=== PATIENT | male | born 1970 | race Hispanic/Latino ===

== ENCOUNTER 2016-10-27 08:29 | Day surgery (SDC) | payer MEDICAID ==
[2016-10-22 08:45] VITALS: BMI 26.6
[2016-10-27] MEDS ORDERED: Bupivacaine 0.5% Inj(30mL) ONE (08:59)
[2016-10-27] MEDS ORDERED: Midazolam 2 MG/2 ML VIAL ONE (08:59)
[2016-10-27] MEDS ORDERED: Propofol 10 mg/ml Inj (20 ML) ONE (08:59)
[2016-10-27] MEDS ORDERED: Lactated Ringer's 1,000 ML IV SCH (10:15)
[2016-10-27] MEDS ORDERED: HYDROmorphone 0.5 mg/0.5 ml ISec IVP PRN (10:15)
--- NOTE | 2016-10-27 10:28 | PCM.SURG1 ---
Surgeon's Initial Post Op Note - Surgeon's Notes Surgeon: Anant Forming Tube Selector: PGY3 Type of Anesthesia: General LMA Pre-Operative Diagnosis: Incarcerated umbilical hernia Operative Findings: Incarcerated umbilical hernia Post-Operative Diagnosis: Incarcerated umbilical hernia Operation Performed: Incarcerated umbilical hernia repair with mesh Specimen/Specimens Removed: umbilical hernia sac and contents Estimated Blood Loss: EBL {In ML}: 5 Blood Products Given: N/A Drains Used: No Drains Post-Op Condition: Good Date of Surgery/Procedure: 10/27/16 Time of Surgery/Procedure: 09:10
[2016-10-27] MEDS ORDERED: HYDROmorphone 0.5 mg/0.5 ml ISec ONE ×2 (10:45→11:01)
[2016-10-27] MEDS ORDERED: HYDROmorphone 0.5 mg/0.5 ml ISec IVP ONE (11:02)
[2016-10-27 11:43] VITALS: RESP 18
[2016-10-27 13:53] VITALS: BP 150/84; PULSE 88; TEMP 98; O2SAT 96
--- NOTE | 2016-11-12 14:07 | PCM.OP ---
Operative Report - Operative Report Date of Surgery/Procedure: 10/27/16 Time of Surgery/Procedure: 00:00 Surgeon: Ellis Ny MD Emissions Technician: Leonard Brown Anesthesia/Sedation: LMA-Marcaine 14cc Pre-Operative Diagnosis: Incarcerated Umbilical Hernia Post-Operative Diagnosis: Incarcerated Umbilical Hernia Indication for Surgery: 46 [place] for umbilical hernia that 's gaining more symptomatic causing pain and interference with work environment. Advised of risk and benefits and elects along with spouse for same day surgical correction. Operative Findings: hernia incarcerated Procedure/Operation Description: Umbilical herniorrhaphy with mesh, Omentectomy. Induced with anesthesia through intravarengal mask. Abdomen electrically put and prepped with chlorhexidine preparation aseptically draped. Sequential compression devices placed on lower extremities for venous thromboembolism prophylaxis. . Circumumbilical incision made caudad & sharp dissection carried to subcutaneous tissues down to anterior fascia through subcutaneous space. Homeostasis is contained with Caudery. The umbilical hernia is still incarcerated circumferentially freed with blunt dissection. Dissected free from umbilical skin hernia sac excised at level of facial at caudery scalpel. Tense adhesions encountered on hernia sac and peritoneal surface, carefully dissected with coagulating current for separation and hemostasis. Inability to return the omentum back into the peritoneal cavity elected transect omentum with a Madelin clamp and 2 0 chromo cut ligature. And the hernia sac with omentum submitted in one container for permanent section analysis. . Anterior abdominal wall inspected and found free and 3.5 inch mesh is placed into peritoneal cavity (ventralex) pulled up anteriorly and anterior fascia closed with figure of 8, 2-0 Prolene sutures. The wings on the ventral mesh secured on the suture line and then transected. Normal Saline solution until return is completely clear. And homeostasis is confirmed. Subcutaneous approximation with 3.0 poly absorbed sutures employed in the skin closed with biosyn 4.0 subcuticular closure and dermabond adhesive. Pt is awaken dry dressing placed on area. Estimated Blood Loss: 20cc Blood Replaced: 0 Sponge/Instrument Count: y Drains: 0 Complications: None Specimen: hernia=omentum Discharge & Condition: Pt is then transported to recovery room in satisfactory condition
== END 2016-10-27 14:10 | disposition home or self-care (01) ==
LOC: SDS 08:29
PROVIDERS: ATTEND Surgery
DX: K42.0 Umbilical hernia with obstruction, without gangrene (principal); K21.9 Gastro-esophageal reflux disease without esophagitis; E78.5 Hyperlipidemia, unspecified
CPT/HCPCS: 49587; 88302; C1781; J0690; J1170; J2001; J2175; J2250; J2405; J2704; J2765; J3010; J7120 ×2

== ENCOUNTER 2017-09-10 15:37 | Inpatient (IN) | payer MEDICAID ==
[2017-09-10 15:46] VITALS: BMI 25.8
[2017-09-10] MEDS ORDERED: Sodium Chloride 0.9% 1,000 ML IV STA (16:16)
--- NOTE | 2017-09-10 16:34 | ED PDOC ---
Arrival/HPI - General Chief Complaint: Cough, Cold, Congestion Time Seen by Provider: 09/10/17 15:53 Historian: Patient - History of Present Illness Narrative History of Present Illness (Text): 09/10/17 16:25 47yr old male presents today with 3 day history of URI symptoms. pt was seen 3 days ago at [facility] [place] [facility] ER was diagnosed with sinusitis was discharged home on nasal spray and pain medication without antibiotics. Patient states over the past 2 days his symptoms are worsening. Patient states he has a bad taste in his mouth he's been feeling dizzy. Patient states he's had continued cough. Patient denies abdominal pain. States he's been feeling nauseous. Patient is also complaining of back pain which he describes as an achy pain. Patient denies numbness weakness or tingling in the extremities. Complaining of fevers of 100.6 at home. Patient states he feels like he is dehydrated. No other complaints Time/Duration: Other (3 days) Past Medical History - Provider Review Nursing Documentation Reviewed: Yes - Travel History Have you recently traveled outside [place] w/in the past 3 mons?: No - Past History Past History: No Previous - Infectious Disease Hx of Infectious Diseases: None - Tetanus Immunization Tetanus Immunization: Unknown - Cardiac Hx Pacemaker: No - Neurological Hx Paralysis: No - Hematological/Oncological Hx Blood Transfusions: No - Musculoskeletal/Rheumatological Hx Musculoskeletal Disorders: Yes (CHRONIC PAIN) Other/Comment: sciatica - Gastrointestinal Hx Gastritis: Yes Hx Gastroesophageal Reflux: Yes (stomach issue) - Psychiatric Hx Emotional Abuse: No Hx Physical Abuse: No Hx Substance Use: Yes (MEDICINAL MARIJUANA(APPROX 1/2 JOINT/DAY)) - Surgical History Hx Inguinal Hernia Repair: Yes (x2) - Anesthesia Hx Anesthesia Reactions: No Hx Malignant Hyperthermia: No - Suicidal Assessment Feels Threatened In Home Enviroment: No Family/Social History - Physician Review Nursing Documentation Reviewed: Yes Family/Social History: Unknown Family HX Smoking Status: Light Smoker < 10 Cigarettes Daily Hx Alcohol Use: Yes (BEER) Frequency of alcohol use: Socially Hx Substance Use: Yes (MEDICINAL MARIJUANA(APPROX 1/2 JOINT/DAY)) Hx Substance Use Treatment: No Allergies/Home Meds Allergies/Adverse Reactions: Allergies No Known Allergies Allergy (Verified 01/06/14 20:51) Home Medications: Home Meds Medication Instructions Recorded Confirmed Omeprazole 20 mg PO DAILY 10/22/16 09/10/17 Sucralfate [Carafate Tab] 1 tab PO DAILY PRN 09/10/17 09/10/17 Review of Systems - Review of Systems Constitutional: Fatigue, Fevers ENT: Sore Throat, Sinus Congestion Respiratory: Cough. absent: SOB Cardiovascular: absent: Chest Pain, Palpitations Gastrointestinal: Nausea. absent: Abdominal Pain, Constipation, Diarrhea, Vomiting Genitourinary Male: absent: Dysuria, Frequency, Hematuria Musculoskeletal: Back Pain. absent: Arthralgias, Neck Pain Skin: absent: Rash, Pruritis Neurological: Headache, Dizziness Psychiatric: absent: Anxiety, Depression, Suicidal Ideation Physical Exam Vital Signs Reviewed: Yes Vital Signs Temp Pulse Resp BP Pulse Ox 09/10/17 15:46 97.8 F 98 H 18 132/94 H 98 Temperature: Afebrile Blood Pressure: Hypertensive Pulse: Regular Respiratory Rate: Normal Appearance: Positive for: Well-Appearing, Non-Toxic, Comfortable Pain Distress: None Mental Status: Positive for: Alert and Oriented X 3 - Systems Exam Head: Present: Atraumatic. No: Tenderness Pupils: Present: PERRL Extroacular Muscles: Present: EOMI Conjunctiva: Present: Normal Ears: Present: Normal, NORMAL TM, Normal Canal. No: Erythema, TM Bulging Mouth: Present: Moist Mucous Membranes, Normal Lips, Normal Tounge, Normal Teeth. No: Drooling, Trismus Pharnyx: Present: Normal. No: ERYTHEMA, EXUDATE, TONSILS ENLARGED, Peritonsilar Swelling, Uvular Deviation, Muffled/Hoarse Voice Nose (External): Present: Atraumatic Nose (Internal): Present: Normal Inspection Neck: Present: Normal Range of Motion, Trachea Midline. No: Lymphadenopathy Respiratory/Chest: Present: Clear to Auscultation, Good Air Exchange. No: Respiratory Distress, Accessory Muscle Use Cardiovascular: Present: Regular Rate and Rhythm, Normal S1, S2. No: Murmurs Abdomen: No: Tenderness, Distention, Peritoneal Signs, Rebound, Guarding Back: Present: Normal Inspection. No: CVA Tenderness, Midline Tenderness, Paraspinal Tenderness Upper Extremity: Present: Normal ROM Lower Extremity: Present: Normal ROM Neurological: Present: GCS=15, Speech Normal Skin: Present: Warm, Dry, Normal Color. No: Rashes Psychiatric: Present: Alert, Oriented x 3 Medical Decision Making ED Course and Treatment: 09/10/17 16:37 47yr old male with URI symptoms, sinus congestion, cough, fever, dizziness, weakness, fatigue. cbc; wnl cmp: elevated LFTS lipase; wnl LDH elevated ekg; sinus rhythm at 91 bpm left axis deviation. no st elevations, normal intervals. cxr: wnl rapid flu negative UA: + bili, + blood pt given toradol IV and NS 1L IV bolus. pt reassessment; pt feeling better after medications; vitals stable. case discussed with dr. abebe; accepts admission impression; elevated LFTS, admit to med/surg - Lab Interpretations Lab Results: 09/10/17 16:30 09/10/17 16:30 Lab Results 09/10/17 17:22: Urine Color Yellow, Urine Appearance Clear, Urine pH 6.0, Ur Specific Preston 1.025, Urine Protein Trace H, Urine Glucose (UA) Negative, Urine Ketones Negative, Urine Blood Trace-intact H, Urine Nitrate Negative, Urine Bilirubin Small H, Urine Urobilinogen 0.2, Ur Leukocyte Esterase Negative , Urine RBC 1 - 3, Urine WBC 0 - 2, Ur Epithelial Cells None 09/10/17 16:53: Influenza Typ A,B (EIA) Negative for flu a/b 09/10/17 16:30: Direct Bilirubin 1.4 H, Lactate Dehydrogenase 1451 H, Lipase 57 09/10/17 16:30: WBC 10.1 D, RBC 5.13, Hgb 16.1, Hct 45.1, MCV 87.9, MCH 31.4, MCHC 35.7, RDW 12.7, Plt Count 223, MPV 10.5, Gran % 76.6 H, Lymph % (Auto) 9.8 L, Craig % (Auto) 10.3 H, Eos % (Auto) 3.1, Baso % (Auto) 0.2, Gran # 7.71 H, Lymph # (Auto) 1.0 L, Craig # (Auto) 1.0 H, Eos # (Auto) 0.3, Baso # (Auto) 0.02 09/10/17 16:30: Sodium 139, Potassium 4.0, Chloride 99, Carbon Dioxide 29, Anion Gap 16, BUN 14, Creatinine 1.0, Est GFR ( Amer) > 60, Est GFR (Non- Af Amer) > 60, Random Glucose 100, Calcium 9.8, Total Bilirubin 2.7 H, AST 667 H , ALT 762 H, Alkaline Phosphatase 245 H, Total Protein 8.0, Albumin 4.6, Globulin 3.4, Albumin/Globulin Ratio 1.3 - RAD Interpretation Radiology Orders: 09/10/17 16:16 CHEST TWO VIEWS (PA/LAT) [RAD] Stat - Medication Orders Current Medication Orders: Discontinued Medications Sodium Chloride (Sodium Chloride 0.9%) 1,000 mls @ 999 mls/hr IV .Q1H1M STA Stop: 09/10/17 17:16 Last Admin: 09/10/17 16:32 Dose: 999 mls/hr eMAR Start Stop Document 09/10/17 16:32 LA (Rec: 09/10/17 16:33 LA [id number]) Intravenous Solution Start Date 09/10/17 Start Time 16:32 End Date 09/10/17 End time 17:33 Total Infusion Time 61 Ketorolac Tromethamine (Toradol) 30 mg IVP STAT STA Stop: 09/10/17 16:17 Last Admin: 09/10/17 16:35 Dose: 30 mg MAR Pain Assessment Document 09/10/17 16:35 LA (Rec: 09/10/17 16:36 LA [id number]) Pain Reassessment Is this a pain reassessment? Yes Sleep Is patient sleeping during reassessment? No Presence of Pain Presence of Pain Yes Pain Scale Used Pain Scale Used Numeric Location Pain Location Body Site Generalized Description Intensity of Pain at present 6 IVP Administration Document 09/10/17 16:35 LA (Rec: 09/10/17 16:36 LA [id number]) Charges for Administration # of IVP Administrations 1 Disposition/Present on Arrival - Present on Arrival Any Indicators Present on Arrival: No History of DVT/PE: No History of Uncontrolled Diabetes: No Urinary Catheter: No History of Decub. Ulcer: No History Surgical Site Infection Following: None - Disposition Have Diagnosis and Disposition been Completed?: Yes Diagnosis: Elevated LFTs, Fatigue Disposition: HOSPITALIZED Disposition Time: 17:47 Patient Plan: Observation Patient Problems: Current Active Problems Problem Status Onset Elevated LFTs Acute Fatigue Acute Condition: FAIR Referrals: Servando Maldonado MD [Primary Care Provider] - Follow up with primary Forms: [facility] ([place])
[2017-09-10 16:47] LABS: BASO # 0.02 K/mm3 (0.0-2.0); BASO % 0.2 % (0.0-3.0); EOS # 0.3 (0.0-0.7); EOS % 3.1 % (1.5-5.0); GRAN # 7.71 (1.4-6.5); GRAN % 76.6 % (50.0-68.0); HEMOGLOBIN 16.1 g/dL (14.0-18.0); LYMPH % 9.8 % (22.0-35.0); MEAN CELL VOLUME 87.9 fl (80.0-105.0); MEAN CORPUSCULAR HEMOGLOBIN 31.4 pg (25.0-35.0); MEAN CORPUSCULAR HGB CONC 35.7 g/dl (31.0-37.0); MEAN PLATELET VOLUME 10.5 fl (7.0-11.0); MONO % 10.3 % (1.0-6.0); RBC 5.13 10^6/uL (3.5-6.1); RED CELL DISTRIBUTION WIDTH 12.7 % (11.5-14.5); WHITE BLOOD COUNT 10.1 10^3/ul (4.5-11.0)
[2017-09-10 16:56] LABS: ALB/GLOB RATIO 1.3 (1.1-1.8); ALBUMIN 4.6 g/dL (3.0-4.8); ALT/SGPT 762 U/L (7-56); AST/SGOT 667 U/L (17-59); BLOOD UREA NITROGEN 14 mg/dL (7-21); CALCIUM 9.8 mg/dL (8.4-10.5); GFR AFRICAN-AMERICAN > 60; GFR NON-AFRICAN AMERICAN > 60
[2017-09-10 17:32] LABS: BILIRUBIN,DIRECT 1.4 mg/dL (0.0-0.4)
[2017-09-10 17:41] LABS: URINE BILIRUBIN SMALL (NEGATIVE); URINE BLOOD TRACE-INTACT (NEGATIVE); URINE GLUCOSE (UA) NEGATIVE (NEGATIVE); URINE LEUKOCYTE ESTERASE NEGATIVE Leu/uL (NEGATIVE); URINE PROTEIN TRACE mg/dL (<30 mg/dL); URINE UROBILINOGEN 0.2 E.U./dL (<1 E.U./dL)
[2017-09-10 17:43] LABS: URINE APPEARANCE CLEAR (CLEAR); URINE COLOR YELLOW (YELLOW)
[2017-09-10 17:57] LABS: URINE WBC 0 - 2 /hpf (0-6)
[2017-09-10 18:51] VITALS: O2SAT 100
[2017-09-10 19:14] LABS: ACETAMINOPHEN < 10.0 ug/ml (10.0-20.0); SALICYLATE < 1 mg/dL (2.0-20.0)
[2017-09-10] MEDS ORDERED: Multivitamin (MVI) 10 ML, Thiamine 100 MG, Folic Acid 1 MG in Dextrose 5% In Water 1,00... IV ONE (20:02)
--- NOTE | 2017-09-10 20:11 | CP.PCM.HP ---
<Neeraj Teixeira - Last Filed: 09/10/17 22:25> History of Present Illness - History of Present Illness History of Present Illness: PGY1 Medicine H+P Note for Dr. Thorne Patient is a 47 year old male with a past medical history of gastritis and chronic low back pain presenting to the emergency room with a 3 day history of URI symptoms. He had a fever of 100.6 while at home and complains of overall weakness. He was seen 3 days ago at the [facility] ER and was discharged with a diagnosis of sinusitis. He was given a nasal spray but no antibiotics. Over the past two days, his symptoms have been getting worse. He has had decreased oral intake and has not has anything to eat or drink in two days. He denies abdominal pain but was extremely nauseous upon presenting to the emergency room. He was given some fluids and zofran. Patient states all of his symptoms were resolved upon time patient was to be admitted. He had no complaints at this time. Denies chills, diarrhea, constipation, chest pain, shortness of breath, palpitations, abdominal pain, headaches, dizziness or lightheadedness. PMH: gastritis and low back pain PSH: two inguinal hernia repairs, one umbilical hernia repair Family: unknown Social: denies tobacco, approximately 24 beers a week (3-4 beers daily), denies illicit drug use. Allergies: NKDA Meds: Patient uses medical marijuana for chronic pain. Present on Admission - Present on Admission Any Indicators Present on Admission: No Review of Systems - Review of Systems All systems: reviewed and no additional remarkable complaints except (as per HPI ) - Constitutional Constitutional: As Per HPI, Fatigue, Fever, Weakness (generalized). absent: Chills - EENT Eyes: As Per HPI Ears: absent: Dizziness Nose/Mouth/Throat: As Per HPI. absent: Nasal Congestion, Nasal Discharge - Cardiovascular Cardiovascular: As Per HPI - Respiratory Respiratory: As Per HPI - Gastrointestinal Gastrointestinal: As Per HPI - Musculoskeletal Musculoskeletal: As Per HPI - Integumentary Integumentary: As Per HPI - Neurological Neurological: As Per HPI - Endocrine Endocrine: As Per HPI - Hematologic/Lymphatic Hematologic: As Per HPI Past Patient History - Infectious Disease Hx of Infectious Diseases: None - Tetanus Immunizations Tetanus Immunization: Unknown - Past Social History Smoking Status: Light Smoker < 10 Cigarettes Daily - CARDIAC Hx Pacemaker: No - NEUROLOGICAL Hx Paralysis: No - HEMATOLOGICAL/ONCOLOGICAL Hx Blood Transfusions: No - MUSCULOSKELETAL/RHEUMATOLOGICAL Hx Musculoskeletal Disorders: Yes (CHRONIC PAIN) Other/Comment: sciatica - GASTROINTESTINAL Hx Gastritis: Yes Hx Gastroesophageal Reflux: Yes (stomach issue) - PSYCHIATRIC Hx Emotional Abuse: No Hx Physical Abuse: No Hx Substance Use: Yes (MEDICINAL MARIJUANA(APPROX 1/2 JOINT/DAY)) - SURGICAL HISTORY Hx Surgeries: Yes Hx Herniorrhaphy: Yes - ANESTHESIA Hx Anesthesia Reactions: No Hx Malignant Hyperthermia: No Meds Allergies/Adverse Reactions: Allergies Allergy/AdvReac Type Severity Reaction Status Date / Time No Known Allergies Allergy Verified 01/06/14 20:51 Physical Exam - Constitutional Appears: Well - Head Exam Head Exam: ATRAUMATIC, NORMAL INSPECTION, NORMOCEPHALIC - Eye Exam Eye Exam: EOMI, Normal appearance - ENT Exam ENT Exam: Mucous Membranes Moist, Normal Exam - Neck Exam Neck exam: Positive for: Normal Inspection - Respiratory Exam Respiratory Exam: Clear to Auscultation Bilateral, NORMAL BREATHING PATTERN. absent: Accessory Muscle Use, Rales, Rhonchi, Wheezes, Respiratory Distress - Cardiovascular Exam Cardiovascular Exam: REGULAR RHYTHM, +S1, +S2 - GI/Abdominal Exam GI & Abdominal Exam: Normal Bowel Sounds, Soft. absent: Tenderness - Rectal Exam Rectal Exam: NORMAL INSPECTION - Extremities Exam Extremities exam: Positive for: normal inspection, pedal pulses present. Negative for: calf tenderness - Back Exam Back exam: NORMAL INSPECTION. absent: CVA tenderness (L), CVA tenderness (R) - Neurological Exam Neurological exam: Alert, CN II-XII Intact, Normal Gait, Oriented x3 - Psychiatric Exam Psychiatric exam: Normal Affect, Normal Mood - Skin Skin Exam: Dry, Intact, Normal Color, Warm Results - Vital Signs Recent Vital Signs: Last Vital Signs Temp 97 F L 09/10/17 19:12 Pulse 90 09/10/17 19:12 Resp 18 09/10/17 19:12 BP 140/90 09/10/17 19:12 Pulse Ox 100 09/10/17 19:12 - Labs Result Diagrams: 09/10/17 16:30 09/10/17 16:30 Assessment & Plan - Assessment and Plan (Free Text) Assessment: Patient is a 47 year old male with a past medical history of gastritis and chronic low back pain presenting with generalized weakness and transaminitis. Plan: Transaminitis GI consulted, Dr. Woods - help appreciated Upon admission: - AST 667 - ALT 762 - Alk Phos 245 - LDH 1451 Salicylates neg Acetaminophen neg Alcohol <10 Abd US - f/u Hep panel - negative Hyperbilirubinemia Upon admission: - Total Bilirubin 2.7 - Direct Bilirubin 1.4 Chronic Low Back Pain Toradol 30mg IVP q6h prn Pt smokes medical marijuana at home f/u UDS hx of Gastritis Protonix 40mg PO daily hx of Alcohol Abuse CIWA protocol Ativan 1 mg IVP prn Banana Bag Prophylactic Care Protonix 40mg PO daily DVT ppx not indicated as patient ambulatory Case discussed with Dr. Mati Pickard Lluvia PGY1 <Lazaro Thorne - Last Filed: 09/11/17 06:24> Results - Vital Signs Recent Vital Signs: Last Vital Signs Temp 98.2 F 09/10/17 21:36 Pulse 85 09/10/17 21:36 Resp 20 09/10/17 21:36 BP 136/100 H 09/10/17 21:36 Pulse Ox 100 09/10/17 19:12 - Labs Result Diagrams: 09/10/17 16:30 09/10/17 16:30 Labs: Laboratory Results - last 24 hr 09/11/17 01:30 Urine Opiates Screen Negative Urine Methadone Screen Negative Ur Barbiturates Screen Negative Ur Phencyclidine Scrn Negative Ur Amphetamines Screen Negative U Benzodiazepines Scrn Negative U Oth Cocaine Metabols Negative U Cannabinoids Screen Positive H
[2017-09-10 21:18] LABS: HEPATITIS B SURFACE AG Negative (NEGATIVE)
[2017-09-10 21:23] LABS: HEPATITIS A IGM NEGATIVE (NEGATIVE); HEPATITIS B CORE AB NEGATIVE (NEGATIVE)
--- NOTE | 2017-09-10 21:28 | US ---
EXAM: US Abdomen Complete CLINICAL HISTORY: 47 years old, male; Abnormal findings; Abnormal lab test; Elevated liver enzymes; Additional info: Elevated lfts/bili TECHNIQUE: Real-time ultrasound of the abdomen (complete) with image documentation. COMPARISON: US - RENAL 2016-07-13 13:05 FINDINGS: Liver: Fatty infiltration. Probable 1.6 x 1.4 x 1.1 cm cyst. No intrahepatic ductal dilatation. Gallbladder: No gallstones. No wall thickening. No pericholecystic fluid. No sonographic Mari's sign. Common bile duct: No dilatation. No stones. Pancreas: Unremarkable as visualized. Kidneys: Normal echogenicity. No hydronephrosis. Spleen: No splenomegaly. Aorta: Unremarkable. No aneurysm. Inferior vena cava: Unremarkable. Free fluid: No significant free fluid. IMPRESSION: 1.No acute findings. 2.Non-acute findings are described above.
[2017-09-10 21:35] LABS: HEPATITIS C ANTIBODY NEGATIVE (NEGATIVE)
[2017-09-11 02:34] LABS: BARBITURATES, UR NEGATIVE (NEGATIVE); BENZODIAZEPINES, UR NEGATIVE (NEGATIVE); OPIATES, UR NEGATIVE (NEGATIVE); PHENCYCLIDINE, UR NEGATIVE (NEGATIVE)
[2017-09-11 04:32] VITALS: RESP 20
[2017-09-11] MEDS ORDERED: Pantoprazole 40 mg EC Tab PO SCH (06:00)
[2017-09-11 07:30] LABS: BASO # 0.02 K/mm3 (0.0-2.0); BASO % 0.3 % (0.0-3.0); EOS # 0.4 (0.0-0.7); EOS % 6.3 % (1.5-5.0); GRAN # 4.43 (1.4-6.5); GRAN % 63.3 % (50.0-68.0); HEMOGLOBIN 15.8 g/dL (14.0-18.0); LYMPH % 14.6 % (22.0-35.0); MEAN CELL VOLUME 88.3 fl (80.0-105.0); MEAN CORPUSCULAR HEMOGLOBIN 30.9 pg (25.0-35.0); MEAN PLATELET VOLUME 10.5 fl (7.0-11.0); MONO # 1.1 (0.1-0.6); MONO % 15.5 % (1.0-6.0); RBC 5.11 10^6/uL (3.5-6.1); RED CELL DISTRIBUTION WIDTH 12.8 % (11.5-14.5)
[2017-09-11 07:51] LABS: ALB/GLOB RATIO 1.3 (1.1-1.8); ALBUMIN 4.3 g/dL (3.0-4.8); ALT/SGPT 753 U/L (7-56); AST/SGOT 550 U/L (17-59); BLOOD UREA NITROGEN 13 mg/dL (7-21); CALCIUM 9.4 mg/dL (8.4-10.5); GFR AFRICAN-AMERICAN > 60; GFR NON-AFRICAN AMERICAN > 60
--- NOTE | 2017-09-11 08:26 | CP.PCM.PN ---
<Zach Osborne - Last Filed: 09/11/17 10:43> Subjective - Date & Time of Evaluation Date of Evaluation: 09/11/17 Time of Evaluation: 08:15 - Subjective Subjective: Zach Osborne PGY1 IM Progress Note for Dr. Brasher Patient was seen and examined at bedside. He states that he has seasonal allergies which his initial presentation could be a manifestation of. He states that he is feeling better overall, but still has a mild cough. Patient denies ever using IV drugs, but states that in the 80's he used cocaine regularly. He is on a medicinal marijuana program due to an accident where he fell off his tractor. 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 He does have a fatty diet. It was explained to him that his liver enzymes were a bit elevated and that he should consider changing his diet and stopping his alcohol use, both of which he is hoping to accomplish. He states that he takes carafate and omeprazole when he eats spicy things for his gastritis, which is about once a week. He denies chills, fevers, n/v/d, abdominal pain, chest pain, or headaches. Objective - Vital Signs/Intake and Output Vital Signs (last 24 hours): Temp Pulse Resp BP Pulse Ox 98.2 F 85 20 136/100 H 100 09/10/17 21:36 09/10/17 21:36 09/10/17 21:36 09/10/17 21:36 09/10/17 19:12 Intake and Output: 09/11/17 09/11/17 06:59 18:59 Intake Total 1700 Output Total 4 Balance 1696 - Medications Medications: Current Medications Ketorolac Tromethamine (Toradol) 30 mg IVP Q6 PRN PRN Reason: Pain, moderate (4-7) Last Admin: 09/10/17 20:57 Dose: 30 mg Lorazepam (Ativan) 1 mg IVP Q4H PRN; Protocol PRN Reason: Symptoms of alcohol withdrawl Ondansetron HCl (Zofran Inj) 4 mg IVP Q6H PRN PRN Reason: Nausea/Vomiting Pantoprazole Sodium (Protonix Ec Tab) 40 mg PO 0600 ELOISE Last Admin: 09/11/17 05:58 Dose: 40 mg - Labs Labs: 09/11/17 07:00 09/11/17 07:00 - Constitutional Appears: Well, Non-toxic, In Acute Distress - Head Exam Head Exam: ATRAUMATIC, NORMAL INSPECTION - Eye Exam Eye Exam: Normal appearance. absent: Scleral icterus Pupil Exam: PERRL - ENT Exam ENT Exam: Mucous Membranes Moist, Normal Exam - Neck Exam Neck Exam: Normal Inspection - Respiratory Exam Respiratory Exam: Clear to Ausculation Bilateral, NORMAL BREATHING PATTERN. absent: Rales, Rhonchi, Wheezes - Cardiovascular Exam Cardiovascular Exam: RRR, +S1, +S2 - GI/Abdominal Exam GI & Abdominal Exam: Soft, Normal Bowel Sounds. absent: Distended, Tenderness, Organomegaly - Extremities Exam Extremities Exam: Full ROM, Normal Inspection - Back Exam Back Exam: Full ROM, NORMAL INSPECTION. absent: CVA tenderness (L), CVA tenderness (R), muscle spasm, tenderness - Neurological Exam Neurological Exam: Alert, Awake - Psychiatric Exam Psychiatric exam: Normal Mood - Skin Skin Exam: Normal Color, Warm Additional comments: no jaundice noted Assessment and Plan - Assessment and Plan (Free Text) Assessment: 47 year old male with a past medical history of gastritis, sciatica, back pain 2 /2 mechanical fall, and 3 hernia repairs presenting with cough and generalized aches and found to have transaminitis and elevated bilirubin Plan: 1. cough and generalized aches - patient remains afebrile - no leukocytosis or signs of infection noted - CXR did not show pneumonia - lungs are CTA on exam - likely 2/2 seasonal allergies vs sinusitis, will start symptomatic treatment - mucinex and tessalon perles 2. Elevated LFT's and elevated conjugated bilirubinemia - downtrending currenytly - Abd US showed fatty liver, probable 1.6 x 1.4 x 1.1 cm cyst, with no intrahepatic ductal dilation, no CBD dilation, no gallstones or GB wall thickening - hepatitis panel negative - GI consulted, recs appreciated - likely 2/2 ETOH hepatitis vs viral hepatitis - will monitor and f/u GI recs 3. Chronic Low Back Pain, controlled on medicinal marijuana - Toradol 30mg IVP q6h prn, pt states not helping and that he needs his marijuana - UDS + cannabis only - will monitor, asymptomatic on physical exam 4. hx of Gastritis - Protonix 40mg PO daily - will consider starting carafate 5. hx of Alcohol Abuse - CIWY protocol - Ativan 1 mg IVP prn - MV, folic acid and thiamine PO 6. Prophylactic Care - Protonix 40mg PO daily - DVT ppx not indicated as patient ambulatory Patient was seen, examined and discussed with attending, Dr. Sameera Osborne PGY1 <Kaylee Brasher - Last Filed: 09/11/17 12:48> Objective - Vital Signs/Intake and Output Vital Signs (last 24 hours): Temp Pulse Resp BP Pulse Ox 97.5 F L 73 20 132/98 H 100 09/11/17 06:00 09/11/17 06:00 09/11/17 06:00 09/11/17 06:00 09/11/17 06:00 Intake and Output: 09/11/17 09/11/17 06:59 18:59 Intake Total 1700 480 Output Total 4 Balance 1696 480 - Labs Labs: 09/11/17 07:00 09/11/17 07:00 PT 12.7 SECONDS (9.4-12.5) H 09/11/17 08:30 INR 1.10 (0.93-1.08) H 09/11/17 08:30 Attending/Attestation - Attestation I have personally seen and examined this patient.: Yes I have fully participated in the care of the patient.: Yes I have reviewed all pertinent clinical information, including history, physical exam and plan: Yes
--- NOTE | 2017-09-11 08:48 | RAD ---
HISTORY: cough/fever COMPARISON: Chest 10/22/2016 TECHNIQUE: Chest PA and lateral FINDINGS: LUNGS: Poor inspiration with low lung volumes, crowded bronchovascular markings and mild bibasilar atelectasis. . PLEURA: No significant pleural effusion identified. No pneumothorax apparent. CARDIOVASCULAR: Heart size is upper limits of normal/ borderline likely due to poor inspiration as well. OSSEOUS STRUCTURES: Minor multilevel degenerative spondylosis of the thoracic spine VISUALIZED UPPER ABDOMEN: Normal. OTHER FINDINGS: None. IMPRESSION: Poor inspiration with low lung volumes, crowded bronchovascular markings and mild bibasilar atelectasis. .
[2017-09-11 09:23] LABS: INR 1.1 (0.93-1.08); PROTHROMBIN TIME 12.7 SECONDS (9.4-12.5)
--- NOTE | 2017-09-11 09:44 | CARD ---
APPROVED REPORT EKG Measurement Heart [id number] [place] [id number] [id number] <Conclusion> Normal sinus rhythm Left axis deviation PRWP V 1 - 4 No change
--- NOTE | 2017-09-11 10:34 | CP.PCM.DIS ---
<Zach Osborne - Last Filed: 09/11/17 10:40> Provider - Provider Date of Admission: 09/10/17 18:02 Attending physician: Kaylee Brasher MD Primary care physician: Servando Maldonado MD Time Spent in preparation of Discharge (in minutes): 40 Diagnosis - Discharge Diagnosis (1) Alcoholic hepatitis Status: Acute (2) Alcoholic fatty liver Status: Acute (3) Elevated LFTs Status: Acute (4) Elevated bilirubin Status: Acute (5) Back pain due to injury Status: Chronic Hospital Course - Lab Results Lab Results: Most Recent Lab Values WBC 7.0 10^3/ul (4.5-11.0) D 09/11/17 07:00 RBC 5.11 10^6/uL (3.5-6.1) 09/11/17 07:00 Hgb 15.8 g/dL (14.0-18.0) 09/11/17 07:00 Hct 45.1 % (42.0-52.0) 09/11/17 07:00 MCV 88.3 fl (80.0-105.0) 09/11/17 07:00 MCH 30.9 pg (25.0-35.0) 09/11/17 07:00 MCHC 35.0 g/dl (31.0-37.0) 09/11/17 07:00 RDW 12.8 % (11.5-14.5) 09/11/17 07:00 Plt Count 221 10^3/uL (120.0-450.0) 09/11/17 07:00 MPV 10.5 fl (7.0-11.0) 09/11/17 07:00 Gran % 63.3 % (50.0-68.0) 09/11/17 07:00 Lymph % (Auto) 14.6 % (22.0-35.0) L 09/11/17 07:00 [place] % (Auto) 15.5 % (1.0-6.0) H 09/11/17 07:00 Eos % (Auto) 6.3 % (1.5-5.0) H 09/11/17 07:00 Baso % (Auto) 0.3 % (0.0-3.0) 09/11/17 07:00 Gran # 4.43 (1.4-6.5) 09/11/17 07:00 Lymph # (Auto) 1.0 (1.2-3.4) L 09/11/17 07:00 [place] # (Auto) 1.1 (0.1-0.6) H 09/11/17 07:00 Eos # (Auto) 0.4 (0.0-0.7) 09/11/17 07:00 Baso # (Auto) 0.02 K/mm3 (0.0-2.0) 09/11/17 07:00 PT 12.7 SECONDS (9.4-12.5) H 09/11/17 08:30 INR 1.10 (0.93-1.08) H 09/11/17 08:30 Sodium 142 mmol/L (132-148) 09/11/17 07:00 Potassium 4.4 mmol/L (3.6-5.0) 09/11/17 07:00 Chloride 105 mmol/L (98-107) 09/11/17 07:00 Carbon Dioxide 25 mmol/L (21-33) 09/11/17 07:00 Anion Gap 16 (10-20) 09/11/17 07:00 BUN 13 mg/dL (7-21) 09/11/17 07:00 Creatinine 0.9 mg/dl (0.8-1.5) 09/11/17 07:00 Est GFR ( Amer) > 60 09/11/17 07:00 Est GFR (Non-Af Amer) > 60 09/11/17 07:00 Random Glucose 117 mg/dL (70-110) H 09/11/17 07:00 Calcium 9.4 mg/dL (8.4-10.5) 09/11/17 07:00 Phosphorus 3.5 mg/dL (2.5-4.5) 09/11/17 07:00 Magnesium 2.1 mg/dL (1.7-2.2) 09/11/17 07:00 Total Bilirubin 2.6 mg/dL (0.2-1.3) H 09/11/17 07:00 Direct Bilirubin 1.4 mg/dL (0.0-0.4) H 09/10/17 16:30 AST 550 U/L (17-59) H 09/11/17 07:00 ALT 753 U/L (7-56) H 09/11/17 07:00 Alkaline Phosphatase 287 U/L (38-126) H 09/11/17 07:00 Lactate Dehydrogenase 1451 U/L (333-699) H 09/10/17 16:30 Total Protein 7.6 g/dL (5.8-8.3) 09/11/17 07:00 Albumin 4.3 g/dL (3.0-4.8) 09/11/17 07:00 Globulin 3.3 gm/dL 09/11/17 07:00 Albumin/Globulin Ratio 1.3 (1.1-1.8) 09/11/17 07:00 Lipase 57 U/L (23-300) 09/10/17 16:30 Urine Color Yellow (YELLOW) 09/10/17 17:22 Urine Appearance Clear (CLEAR) 09/10/17 17:22 Urine pH 6.0 (4.7-8.0) 09/10/17 17:22 Ur Specific [place] 1.025 (1.005-1.035) 09/10/17 17:22 Urine Protein Trace mg/dL (<30 mg/dL) H 09/10/17 17:22 Urine Glucose (UA) Negative mg/dL (NEGATIVE) 09/10/17 17:22 Urine Ketones Negative mg/dL (NEGATIVE) 09/10/17 17:22 Urine Blood Trace-intact (NEGATIVE) H 09/10/17 17:22 Urine Nitrate Negative (NEGATIVE) 09/10/17 17:22 Urine Bilirubin Small (NEGATIVE) H 09/10/17 17:22 Urine Urobilinogen 0.2 E.U./dL (<1 E.U./dL) 09/10/17 17:22 Ur Leukocyte Esterase Negative Dave/uL (NEGATIVE) 09/10/17 17:22 Urine RBC 1 - 3 /hpf (0-2) 09/10/17 17:22 Urine WBC 0 - 2 /hpf (0-6) 09/10/17 17:22 Ur Epithelial Cells None /hpf (0-5) 09/10/17 17:22 Salicylates < 1 mg/dL (2.0-20.0) L 09/10/17 16:30 Urine Opiates Screen Negative (NEGATIVE) 09/11/17 01:30 Urine Methadone Screen Negative (NEGATIVE) 09/11/17 01:30 Acetaminophen < 10.0 ug/ml (10.0-20.0) L 09/10/17 16:30 Ur Barbiturates Screen Negative (NEGATIVE) 09/11/17 01:30 Ur Phencyclidine Scrn Negative (NEGATIVE) 09/11/17 01:30 Ur Amphetamines Screen Negative (NEGATIVE) 09/11/17 01:30 U Benzodiazepines Scrn Negative (NEGATIVE) 09/11/17 01:30 U Oth Cocaine Metabols Negative (NEGATIVE) 09/11/17 01:30 U Cannabinoids Screen Positive (NEGATIVE) H 09/11/17 01:30 Alcohol, Quantitative < 10 mg/dL (0-10) 09/10/17 16:30 Hepatitis A IgM Ab Negative (NEGATIVE) 09/10/17 16:30 Hep Bs Antigen Negative (NEGATIVE) 09/10/17 16:30 Hep B Core IgM Ab Negative (NEGATIVE) 09/10/17 16:30 Hepatitis C Antibody Negative (NEGATIVE) 09/10/17 16:30 Influenza Typ A,B (EIA) Negative for flu a/b (NEGATIVE) 09/10/17 16:53 - Hospital Course Hospital Course: Mr. Hemphill is a 47 year old male with a past medical history of gastritis and chronic back pain 2/2 mechanical fall off truck (well controlled on medicinal marijuana) who presented a 3 day history of URI symptoms. Patient denied ever using IV drugs, but states that in the 80's he used cocaine regularly. 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 He does have a fatty diet. On examination, his CXR did not pneumonia, and patient's symptoms improved with hydration. Labs showed elevated liver enzymes and direct bilirubinemia. Abd US showed fatty liver, probable 1.6 x 1.4 x 1.1 cm cyst, with no intrahepatic ductal dilation, no CBD dilation, no gallstones or GB wall thickening; hepatitis panel negative. GI was consulted and stated that labs likely 2/2 ETOH and that patient can be d/c safely w/ GI follow up since levels were downtrending. It was explained to him that his liver enzymes were elevated and that he must consider changing his diet and stopping his alcohol and tobacco use , both of which he is hoping to accomplish. He is also advised to avoid spicy foods and take his omperazole and carafate as prescribed daily. He will follow up with GI Dr. Mckeon and PMD Dr. Villanueva. Discharge Exam - Additional Findings Additional findings: - Constitutional Appears: Well, Non-toxic, In Acute Distress - Head Exam Head Exam: ATRAUMATIC, NORMAL INSPECTION - Eye Exam Eye Exam: Normal appearance. absent: Scleral icterus Pupil Exam: PERRL - ENT Exam ENT Exam: Mucous Membranes Moist, Normal Exam - Neck Exam Neck Exam: Normal Inspection - Respiratory Exam Respiratory Exam: Clear to Ausculation Bilateral, NORMAL BREATHING PATTERN. absent: Rales, Rhonchi, Wheezes - Cardiovascular Exam Cardiovascular Exam: RRR, +S1, +S2 - GI/Abdominal Exam GI & Abdominal Exam: Soft, Normal Bowel Sounds. absent: Distended, Tenderness, Organomegaly - Extremities Exam Extremities Exam: Full ROM, Normal Inspection - Back Exam Back Exam: Full ROM, NORMAL INSPECTION. absent: CVA tenderness (L), CVA tenderness (R), muscle spasm, tenderness - Neurological Exam Neurological Exam: Alert, Awake - Psychiatric Exam Psychiatric exam: Normal Mood - Skin Skin Exam: Normal Color, Warm Additional comments: no jaundice noted Discharge Plan - Follow Up Plan Condition: FAIR Disposition: HOME/ ROUTINE Patient education suggested?: Yes Instructions: Quitting Smoking for Older Adults, Smoking: Not Just Harmful to Your Lungs and Heart, Liver Function Test, Alanine Aminotransferase Test, Aspartate Aminotransferase Test, Alkaline Phosphatase Test Additional Instructions: - please follow up with your PMD Dr. Villanueva within 1 week or the earliest appointment - please follow up with your GI Dr. Mckeon within 1 week for your elevated liver enzymes, liver cyst and fatty liver - if you experience worsening cough, fevers/chill or shortness of breath, please return to ER for evaluation - please stop all tobacco and alcohol use as they are harmful as was explained to you - please continue carafate and omperazole daily as prescribed for your gastritis -If you continue to have pain you can take ibuprofen 400mg every 6 hrs as needed Referrals: Elen Villanueva MD [Medical Doctor] - Mike CHAMPAGNE,Elen Vazquez MD [Medical Doctor] - <Kaylee Brasher - Last Filed: 09/11/17 12:48> Provider - Provider Date of Admission: 09/10/17 18:02 Attending physician: Kaylee Brasher MD Primary care physician: Servando Maldonado MD Hospital Course - Lab Results Lab Results: Most Recent Lab Values WBC 7.0 10^3/ul (4.5-11.0) D 09/11/17 07:00 RBC 5.11 10^6/uL (3.5-6.1) 09/11/17 07:00 Hgb 15.8 g/dL (14.0-18.0) 09/11/17 07:00 Hct 45.1 % (42.0-52.0) 09/11/17 07:00 MCV 88.3 fl (80.0-105.0) 09/11/17 07:00 MCH 30.9 pg (25.0-35.0) 09/11/17 07:00 MCHC 35.0 g/dl (31.0-37.0) 09/11/17 07:00 RDW 12.8 % (11.5-14.5) 09/11/17 07:00 Plt Count 221 10^3/uL (120.0-450.0) 09/11/17 07:00 MPV 10.5 fl (7.0-11.0) 09/11/17 07:00 Gran % 63.3 % (50.0-68.0) 09/11/17 07:00 Lymph % (Auto) 14.6 % (22.0-35.0) L 09/11/17 07:00 [place] % (Auto) 15.5 % (1.0-6.0) H 09/11/17 07:00 Eos % (Auto) 6.3 % (1.5-5.0) H 09/11/17 07:00 Baso % (Auto) 0.3 % (0.0-3.0) 09/11/17 07:00 Gran # 4.43 (1.4-6.5) 09/11/17 07:00 Lymph # (Auto) 1.0 (1.2-3.4) L 09/11/17 07:00 [place] # (Auto) 1.1 (0.1-0.6) H 09/11/17 07:00 Eos # (Auto) 0.4 (0.0-0.7) 09/11/17 07:00 Baso # (Auto) 0.02 K/mm3 (0.0-2.0) 09/11/17 07:00 PT 12.7 SECONDS (9.4-12.5) H 09/11/17 08:30 INR 1.10 (0.93-1.08) H 09/11/17 08:30 Sodium 142 mmol/L (132-148) 09/11/17 07:00 Potassium 4.4 mmol/L (3.6-5.0) 09/11/17 07:00 Chloride 105 mmol/L (98-107) 09/11/17 07:00 Carbon Dioxide 25 mmol/L (21-33) 09/11/17 07:00 Anion Gap 16 (10-20) 09/11/17 07:00 BUN 13 mg/dL (7-21) 09/11/17 07:00 Creatinine 0.9 mg/dl (0.8-1.5) 09/11/17 07:00 Est GFR ( Amer) > 60 09/11/17 07:00 Est GFR (Non-Af Amer) > 60 09/11/17 07:00 Random Glucose 117 mg/dL (70-110) H 09/11/17 07:00 Calcium 9.4 mg/dL (8.4-10.5) 09/11/17 07:00 Phosphorus 3.5 mg/dL (2.5-4.5) 09/11/17 07:00 Magnesium 2.1 mg/dL (1.7-2.2) 09/11/17 07:00 Total Bilirubin 2.6 mg/dL (0.2-1.3) H 09/11/17 07:00 Direct Bilirubin 1.4 mg/dL (0.0-0.4) H 09/10/17 16:30 AST 550 U/L (17-59) H 09/11/17 07:00 ALT 753 U/L (7-56) H 09/11/17 07:00 Alkaline Phosphatase 287 U/L (38-126) H 09/11/17 07:00 Lactate Dehydrogenase 1451 U/L (333-699) H 09/10/17 16:30 Total Protein 7.6 g/dL (5.8-8.3) 09/11/17 07:00 Albumin 4.3 g/dL (3.0-4.8) 09/11/17 07:00 Globulin 3.3 gm/dL 09/11/17 07:00 Albumin/Globulin Ratio 1.3 (1.1-1.8) 09/11/17 07:00 Lipase 57 U/L (23-300) 09/10/17 16:30 Urine Color Yellow (YELLOW) 09/10/17 17:22 Urine Appearance Clear (CLEAR) 09/10/17 17:22 Urine pH 6.0 (4.7-8.0) 09/10/17 17:22 Ur Specific [place] 1.025 (1.005-1.035) 09/10/17 17:22 Urine Protein Trace mg/dL (<30 mg/dL) H 09/10/17 17:22 Urine Glucose (UA) Negative mg/dL (NEGATIVE) 09/10/17 17:22 Urine Ketones Negative mg/dL (NEGATIVE) 09/10/17 17:22 Urine Blood Trace-intact (NEGATIVE) H 09/10/17 17:22 Urine Nitrate Negative (NEGATIVE) 09/10/17 17:22 Urine Bilirubin Small (NEGATIVE) H 09/10/17 17:22 Urine Urobilinogen 0.2 E.U./dL (<1 E.U./dL) 09/10/17 17:22 Ur Leukocyte Esterase Negative Dave/uL (NEGATIVE) 09/10/17 17:22 Urine RBC 1 - 3 /hpf (0-2) 09/10/17 17:22 Urine WBC 0 - 2 /hpf (0-6) 09/10/17 17:22 Ur Epithelial Cells None /hpf (0-5) 09/10/17 17:22 Salicylates < 1 mg/dL (2.0-20.0) L 09/10/17 16:30 Urine Opiates Screen Negative (NEGATIVE) 09/11/17 01:30 Urine Methadone Screen Negative (NEGATIVE) 09/11/17 01:30 Acetaminophen < 10.0 ug/ml (10.0-20.0) L 09/10/17 16:30 Ur Barbiturates Screen Negative (NEGATIVE) 09/11/17 01:30 Ur Phencyclidine Scrn Negative (NEGATIVE) 09/11/17 01:30 Ur Amphetamines Screen Negative (NEGATIVE) 09/11/17 01:30 U Benzodiazepines Scrn Negative (NEGATIVE) 09/11/17 01:30 U Oth Cocaine Metabols Negative (NEGATIVE) 09/11/17 01:30 U Cannabinoids Screen Positive (NEGATIVE) H 09/11/17 01:30 Alcohol, Quantitative < 10 mg/dL (0-10) 09/10/17 16:30 Hepatitis A IgM Ab Negative (NEGATIVE) 09/10/17 16:30 Hep Bs Antigen Negative (NEGATIVE) 09/10/17 16:30 Hep B Core IgM Ab Negative (NEGATIVE) 09/10/17 16:30 Hepatitis C Antibody Negative (NEGATIVE) 09/10/17 16:30 Influenza Typ A,B (EIA) Negative for flu a/b (NEGATIVE) 09/10/17 16:53 Attending/Attestation - Attestation I have personally seen and examined this patient.: Yes I have fully participated in the care of the patient.: Yes I have reviewed all pertinent clinical information, including history, physical exam and plan: Yes Notes (Text): 09/11/17 12:43 47 year old male with past medical history of gastritis, chronic back pain and alcohol use who presented with URI symptoms and chronic back pain. He was found to have elevated LFTs. Workup including hepatitis panel, alcohol and tylenol levels were negative. US abdomen showed fatty infiltration of liver and possible liver cyst. Patient was seen seen by GI who recommended outpatient follow up. Patient was seen this morning. He denies any complaints and wants to go home. His LFTs are mildly improved today. Patient is discharged home to follow up with his pmd and aircraft technician. Recommended close outpatient follow up for serial LFTs monitoring. Outpatient follow up / workup for probable liver cyst with PMD/GI. Counselled on smoking and drinking abstinence. Kaylee Brasher MD Hospitalist.
[2017-09-11 10:39] VITALS: BP 132/98; PULSE 73; TEMP 97.5
--- NOTE | 2017-09-11 11:19 | CP.PCM.CON ---
<Clair Ace - Last Filed: 09/11/17 11:20> History of Present Illness - History of Present Illness History of Present Illness: GI Fellow PGY4 Consult Note Patient is a 47 year old male with a past medical history of alcohol abuse, gastritis and chronic low back pain presenting to the emergency room with complains of overall weakness following URI. He has had decreased oral intake and has not has anything to eat or drink in two days. He denies abdominal pain but was extremely nauseous upon presenting to the emergency room. He was given some fluids and zofran. GI was consulted for elevated LFTs. Pt denies any recent abx use, binge drinking, sick contacts or travel. Pt does have a significant hx of daily alcohol intake for many years, he reports drinking 50 beers per week as well hard liquor. Denies any admission for jaundice or liver disease. No prior colonoscopy, EGD with gastritis a few years ago ROS: A 12pt ROS was negative except as above PMH: gastritis and low back pain PSH: two inguinal hernia repairs, one umbilical hernia repair Family: unknown Social: denies tobacco, approximately 50 beers a week includig hard liquor for 30+years, medical marijuana, hx of cocaine in his 20s. Past Patient History - Infectious Disease Hx of Infectious Diseases: None - Tetanus Immunizations Tetanus Immunization: Unknown - Past Social History Smoking Status: Light Smoker < 10 Cigarettes Daily - CARDIAC Hx Pacemaker: No - NEUROLOGICAL Hx Paralysis: No - HEMATOLOGICAL/ONCOLOGICAL Hx Blood Transfusions: No - MUSCULOSKELETAL/RHEUMATOLOGICAL Hx Musculoskeletal Disorders: Yes (CHRONIC PAIN) Other/Comment: sciatica - GASTROINTESTINAL Hx Gastritis: Yes Hx Gastroesophageal Reflux: Yes (stomach issue) - PSYCHIATRIC Hx Emotional Abuse: No Hx Physical Abuse: No Hx Substance Use: Yes (MEDICINAL MARIJUANA(APPROX 1/2 JOINT/DAY)) - SURGICAL HISTORY Hx Surgeries: Yes Hx Herniorrhaphy: Yes - ANESTHESIA Hx Anesthesia Reactions: No Hx Malignant Hyperthermia: No Meds Allergies/Adverse Reactions: Allergies Allergy/AdvReac Type Severity Reaction Status Date / Time No Known Allergies Allergy Verified 01/06/14 20:51 - Medications Medications: Current Medications Folic Acid (Folic Acid) 1 mg PO DAILY ELOISE Ketorolac Tromethamine (Toradol) 30 mg IVP Q6 PRN PRN Reason: Pain, moderate (4-7) Last Admin: 09/10/17 20:57 Dose: 30 mg Lorazepam (Ativan) 1 mg IVP Q4H PRN; Protocol PRN Reason: Symptoms of alcohol withdrawl Multivitamins/Minerals (Therapeutic-M Tab) 1 tab PO 0800 [facility] Ondansetron HCl (Zofran Inj) 4 mg IVP Q6H PRN PRN Reason: Nausea/Vomiting Pantoprazole Sodium (Protonix Ec Tab) 40 mg PO 0600 ELOISE Last Admin: 09/11/17 05:58 Dose: 40 mg Sucralfate (Carafate Tab) 1 gm PO DAILY PRN PRN Reason: gerd Thiamine HCl (Vitamin B1 Tab) 100 mg PO DAILY [facility] Physical Exam - Constitutional Appears: Non-toxic, No Acute Distress - Head Exam Head Exam: ATRAUMATIC, NORMAL INSPECTION, NORMOCEPHALIC - Eye Exam Eye Exam: EOMI, Normal appearance, PERRL Pupil Exam: NORMAL ACCOMODATION, PERRL - ENT Exam ENT Exam: Mucous Membranes Moist, Normal Exam - Neck Exam Neck exam: Positive for: Normal Inspection - Respiratory Exam Respiratory Exam: Clear to Auscultation Bilateral, NORMAL BREATHING PATTERN - Cardiovascular Exam Cardiovascular Exam: REGULAR RHYTHM, +S1, +S2 - GI/Abdominal Exam GI & Abdominal Exam: Normal Bowel Sounds, Soft. absent: Distended, Organomegaly , Tenderness - Rectal Exam Rectal Exam: Deferred - Extremities Exam Extremities exam: Positive for: full ROM, normal inspection - Back Exam Back exam: NORMAL INSPECTION - Neurological Exam Neurological exam: Alert, Oriented x3 - Psychiatric Exam Psychiatric exam: Normal Affect, Normal Mood - Skin Skin Exam: Dry, Intact, Normal Color, Warm Results - Vital Signs Recent Vital Signs: Last Vital Signs Temp 97.5 F L 09/11/17 06:00 Pulse 73 09/11/17 06:00 Resp 20 09/11/17 06:00 BP 132/98 H 09/11/17 06:00 Pulse Ox 100 09/11/17 06:00 - Labs Result Diagrams: 09/11/17 07:00 09/11/17 07:00 Labs: Laboratory Results - last 24 hr 09/11/17 09/11/17 09/11/17 01:30 07:00 07:00 WBC 7.0 D RBC 5.11 Hgb 15.8 Hct 45.1 MCV 88.3 MCH 30.9 MCHC 35.0 RDW 12.8 Plt Count 221 MPV 10.5 Gran % 63.3 Lymph % (Auto) 14.6 L [place] % (Auto) 15.5 H Eos % (Auto) 6.3 H Baso % (Auto) 0.3 Gran # 4.43 Lymph # (Auto) 1.0 L [place] # (Auto) 1.1 H Eos # (Auto) 0.4 Baso # (Auto) 0.02 PT INR Sodium 142 Potassium 4.4 Chloride 105 Carbon Dioxide 25 Anion Gap 16 BUN 13 Creatinine 0.9 Est GFR ( Amer) > 60 Est GFR (Non-Af Amer) > 60 Random Glucose 117 H Calcium 9.4 Phosphorus 3.5 Magnesium 2.1 Total Bilirubin 2.6 H AST 550 H ALT 753 H Alkaline Phosphatase 287 H Total Protein 7.6 Albumin 4.3 Globulin 3.3 Albumin/Globulin Ratio 1.3 Urine Opiates Screen Negative Urine Methadone Screen Negative Ur Barbiturates Screen Negative Ur Phencyclidine Scrn Negative Ur Amphetamines Screen Negative U Benzodiazepines Scrn Negative U Oth Cocaine Metabols Negative U Cannabinoids Screen Positive H 09/11/17 08:30 WBC RBC Hgb Hct MCV MCH MCHC RDW Plt Count MPV Gran % Lymph % (Auto) [place] % (Auto) Eos % (Auto) Baso % (Auto) Gran # Lymph # (Auto) [place] # (Auto) Eos # (Auto) Baso # (Auto) PT 12.7 H INR 1.10 H Sodium Potassium Chloride Carbon Dioxide Anion Gap BUN Creatinine Est GFR ( Amer) Est GFR (Non-Af Amer) Random Glucose Calcium Phosphorus Magnesium Total Bilirubin AST ALT Alkaline Phosphatase Total Protein Albumin Globulin Albumin/Globulin Ratio Urine Opiates Screen Urine Methadone Screen Ur Barbiturates Screen Ur Phencyclidine Scrn Ur Amphetamines Screen U Benzodiazepines Scrn U Oth Cocaine Metabols U Cannabinoids Screen Assessment & Plan - Assessment and Plan (Free Text) Assessment: This is a 47yM presenting with weakness found to have elevated LFTs. 1. Transminitis 2. Alcohol abuse Plan: -Continue supportive care -LFTs trending down -Abd US negative except fatty liver, no cirrhosis -Alcohol hepatitis likely etiology of LFTs, DF 3.5 -Discussed etoh cessation and outpt followup -Hepatitis panel neg -Pt okay for dc home and follow up with GI outpt <Dayne Woods - Last Filed: 09/11/17 12:35> Results - Vital Signs Recent Vital Signs: Last Vital Signs Temp 97.5 F L 09/11/17 06:00 Pulse 73 09/11/17 06:00 Resp 20 09/11/17 06:00 BP 132/98 H 09/11/17 06:00 Pulse Ox 100 09/11/17 06:00 - Labs Result Diagrams: 09/11/17 07:00 09/11/17 07:00 Labs: Laboratory Results - last 24 hr 09/11/17 09/11/17 09/11/17 01:30 07:00 07:00 WBC 7.0 D RBC 5.11 Hgb 15.8 Hct 45.1 MCV 88.3 MCH 30.9 MCHC 35.0 RDW 12.8 Plt Count 221 MPV 10.5 Gran % 63.3 Lymph % (Auto) 14.6 L [place] % (Auto) 15.5 H Eos % (Auto) 6.3 H Baso % (Auto) 0.3 Gran # 4.43 Lymph # (Auto) 1.0 L [place] # (Auto) 1.1 H Eos # (Auto) 0.4 Baso # (Auto) 0.02 PT INR Sodium 142 Potassium 4.4 Chloride 105 Carbon Dioxide 25 Anion Gap 16 BUN 13 Creatinine 0.9 Est GFR ( Amer) > 60 Est GFR (Non-Af Amer) > 60 Random Glucose 117 H Calcium 9.4 Phosphorus 3.5 Magnesium 2.1 Total Bilirubin 2.6 H AST 550 H ALT 753 H Alkaline Phosphatase 287 H Total Protein 7.6 Albumin 4.3 Globulin 3.3 Albumin/Globulin Ratio 1.3 Urine Opiates Screen Negative Urine Methadone Screen Negative Ur Barbiturates Screen Negative Ur Phencyclidine Scrn Negative Ur Amphetamines Screen Negative U Benzodiazepines Scrn Negative U Oth Cocaine Metabols Negative U Cannabinoids Screen Positive H 09/11/17 08:30 WBC RBC Hgb Hct MCV MCH MCHC RDW Plt Count MPV Gran % Lymph % (Auto) [place] % (Auto) Eos % (Auto) Baso % (Auto) Gran # Lymph # (Auto) [place] # (Auto) Eos # (Auto) Baso # (Auto) PT 12.7 H INR 1.10 H Sodium Potassium Chloride Carbon Dioxide Anion Gap BUN Creatinine Est GFR ( Amer) Est GFR (Non-Af Amer) Random Glucose Calcium Phosphorus Magnesium Total Bilirubin AST ALT Alkaline Phosphatase Total Protein Albumin Globulin Albumin/Globulin Ratio Urine Opiates Screen Urine Methadone Screen Ur Barbiturates Screen Ur Phencyclidine Scrn Ur Amphetamines Screen U Benzodiazepines Scrn U Oth Cocaine Metabols U Cannabinoids Screen Attending/Attestation - Attestation I have personally seen and examined this patient.: Yes I have fully participated in the care of the patient.: Yes I have reviewed all pertinent clinical information: Yes Notes (Text): 09/11/17 12:34 47 year old male with h/o etoh abuse admitted, found to have elevated lfts c/w alcoholic hepatitis. No indication for steroids. Advised strict etoh abstinence and outpatient f/u with Dr. Duron. Eval for concomitant liver disase so far negative. Will sign off. Ok for discharge from GI perspective.
[2017-09-12] MEDS ORDERED: Multivitamin With Minerals Tab PO SCH (08:00)
== END 2017-09-11 12:32 | disposition home or self-care (01) | DRG 202 ==
LOC: ED 15:37 → ERH 18:02 → 5RSO 19:40
PROVIDERS: ADMIT Internal Medicine; ATTEND Internal Medicine
DX: K70.10 Alcoholic hepatitis without ascites (principal); K70.0 Alcoholic fatty liver; K29.70 Gastritis, unspecified, without bleeding; G89.29 Other chronic pain; M54.5 Low back pain; R53.1 Weakness; M54.30 Sciatica, unspecified side; F10.10 Alcohol abuse, uncomplicated; J30.2 Other seasonal allergic rhinitis; R79.89 Other specified abnormal findings of blood chemistry; K21.9 Gastro-esophageal reflux disease without esophagitis; F17.210 Nicotine dependence, cigarettes, uncomplicated

== ENCOUNTER 2018-09-17 07:12 | Outpatient (CLI) | payer MEDICAID | END 2018-09-17 07:13 | disposition home or self-care (01) | LOC: RAD 07:12 | DX: R94.5 Abnormal results of liver function studies (principal) ==